=== PATIENT | female | born 1945 | race Caucasian/White ===

== ENCOUNTER 2020-02-02 17:45 | Inpatient (IN) | payer MEDICARE, MEDICAID ==
[~2020-02-02] VITALS: Ht 154.9 cm; Wt 90.3 kg
--- NOTE | 2020-02-02 17:51 | NUR ---
SHERIE FROM [facility] C/O ALTERED MENTAL STATUS PER EMS LOW BLOOD SUGAR; PT TO BED 6, PT AAOX1, PT ANSWER QUESTIONS APPROPRIETLY, -SOB, -PAIN/DISCOMFRT, -CP, VSS, NAD NOTED. PENDING ER PROVIDER CESAR
--- NOTE | 2020-02-02 17:56 | NUR ---
BG=90--DR SOTO AWARE
[2020-02-02] MEDS ORDERED: CARB1TAB24 PO (17:59)
[2020-02-02] MEDS ORDERED: GLIP5TAB13 PO (17:59)
[2020-02-02] MEDS ORDERED: CHOL500052 PO (17:59)
[2020-02-02] MEDS ORDERED: METF-440 PO (17:59)
[2020-02-02] MEDS ORDERED: AMLO5TAB9 PO (17:59)
[2020-02-02] MEDS ORDERED: LORA-259 PO (17:59)
[2020-02-02] MEDS ORDERED: DIVA-78 PO (17:59)
--- NOTE | 2020-02-02 18:00 | NUR ---
ordered meal tray, pt asleep at this time, will offer once pt more awake
[2020-02-02 18:30] LABS: BASOPHILS # (AUTO) 0.1 /CMM (0.0-0.2); EOSINOPHILS % (AUTO) 0.8 % (0.0-6.0); HEMATOCRIT 46 % (33-45); HEMOGLOBIN 14.8 g/dL (11.5-14.8); LYMPHOCYTES # (AUTO) 2.3 /CMM (0.8-4.8); LYMPHOCYTES % (AUTO) 20.9 % (20.0-44.0); MEAN CORPUSCULAR HGB CONC 32 g/dl (31.0-36.0); MEAN CORPUSCULAR VOLUME 99 fL (82-100); MONOCYTES % (AUTO) 8.8 % (2.0-12.0); NEUTROPHILS # (AUTO) 7.6 /CMM (1.8-8.9); NEUTROPHILS % (AUTO) 68.5 % (43.0-81.0); PLATELET COUNT (AUTO) 324 /CMM (150-450); RED BLOOD CELL COUNT(AUTO) 4.66 MIL/uL (4.0-5.2)
[2020-02-02] MEDS ORDERED: ONDANSETRON HCL/PF 4 MG/2 ML VIAL ONE (18:30)
[2020-02-02] MEDS ORDERED: IV NS 0.9% 1,000 ML BAG IV ONE (18:30)
[2020-02-02] MEDS ORDERED: ONDANSETRON HCL/PF 4 MG/2 ML VIAL IVP ONE (18:30)
[2020-02-02 18:42] LABS: CARBON DIOXIDE 29 mmol/L (21-32); CHLORIDE 103 mmol/L (98-107); CREATININE 0.9 mg/dL (0.6-1.3); GLUCOSE 95 mg/dL (74-106); POTASSIUM 4.6 mmol/L (3.5-5.1); SODIUM SERUM 140 mmol/L (136-145); UREA NITROGEN, BLOOD 18 mg/dL (7-18)
[2020-02-02 18:49] LABS: ALANINE AMINOTRANSFERASE 7 U/L (12-78); ALBUMIN 3.9 g/dL (3.4-5.0); ALKALINE PHOSPHATASE 102 U/L (46-116); ASPARTATE AMINOTRANSFERASE 17 U/L (15-37); BILIRUBIN,DIRECT 0.1 mg/dL (0.0-0.2); BILIRUBIN,TOTAL 0.4 mg/dL (0.2-1.0); LIPASE 121 U/L (73-393); TOTAL PROTEIN, SERUM 7.6 g/dL (6.4-8.2)
--- NOTE | 2020-02-02 20:58 | NUR ---
REPORT GIVEN TO KELLEY GRAHAM FOR ANDREY PT WILL BE TRANSPORTED TO 2ND FLOOR
[2020-02-02 21:30] VITALS: BP 137/98
[2020-02-02] MEDS ORDERED: DEXTROSE 50%-WATER 50 ML DISP.SYRIN IV PRN (22:00)
[2020-02-02] MEDS ORDERED: *INSULIN REGULAR(HUMULIN R)HUM 100 UNIT/ML VIAL SQ PRN (22:00)
[2020-02-02] MEDS ORDERED: ONDANSETRON HCL/PF 4 MG/2 ML VIAL IVP PRN (22:00)
[2020-02-02] MEDS ORDERED: INSULIN REGULAR, HUMAN 100 UNIT/ML 3 ML VIAL SQ PRN (22:00)
[2020-02-02] MEDS ORDERED: MAG HYDROX/AL HYDROX/SIMETH 30 ML UDC PO PRN (22:00)
[2020-02-02] MEDS ORDERED: MAGNESIUM HYDROXIDE 30 ML UDC PO PRN (22:00)
[2020-02-02] MEDS ORDERED: Z GUARD REMEDY 2 OZ OINT TP PRN (22:00)
[2020-02-02] MEDS ORDERED: ACETAMINOPHEN 325 MG TABLET PO PRN (22:00)
--- NOTE | 2020-02-02 22:00 | NUR ---
MS notes Receive pt from E.R services at 2116 pt a/o x 1-2, respirations even and unlabored. admit to MS unit. head to toe assessment is done. no s/s of distress, kept clean, dry and comfortable. safety measures in place will cont to monitor.
[2020-02-02] MEDS: IV NS 0.9% 1,000 ML IV PRN (22:11)
[2020-02-02] MEDS: BLOOD SUGAR DIAGNOSTIC 1 EACH STRIP VI SCH (22:12)
--- NOTE | 2020-02-02 23:00 | NUR ---
Pt's blood sugar checked at 97 mg/dl
--- NOTE | 2020-02-02 23:30 | NUR ---
S/B DR. PARNELL. ORDERED DNR/DNI. POLST PROVIDED IN THE CHART ORDER NOTED AND CARRIED OUT
[2020-02-03] MEDS: HYDROCODONE/APAP 5/325MG 1 EACH TABLET PO PRN ×2 (02:29→15:28)
--- NOTE | 2020-02-03 06:14 | NUR ---
MS RN PT ASLEEP AND EASILY AWAKEN, SLEPT WELL. NO S/S OF DISTRESS, NEEDS ATTENDED AND ANTICIPATED, KEPT CLEAN, DRY AND COMFORTABLE. AM CARE RENDERED, ASSISTED REPOSITION Q2HR. SAFETY MEASURES AT ALL TIMES. WILL ENDORSE NEXT SHIFT POC.
[2020-02-03] MEDS: BLOOD SUGAR DIAGNOSTIC 1 EACH STRIP VI SCH ×4 (06:42→21:56)
--- NOTE | 2020-02-03 07:06 | NUR ---
SENT FLU SWAB SPECIMEN RECEIVED BY LAB
[2020-02-03 07:10] LABS: BASOPHILS % (AUTO) 0.5 % (0.0-2.0); EOSINOPHILS % (AUTO) 1.7 % (0.0-6.0); HEMATOCRIT 40 % (33-45); HEMOGLOBIN 12.9 g/dL (11.5-14.8); LYMPHOCYTES # (AUTO) 2.4 /CMM (0.8-4.8); LYMPHOCYTES % (AUTO) 27.5 % (20.0-44.0); MEAN CORPUSCULAR HGB CONC 32 g/dl (31.0-36.0); MEAN CORPUSCULAR VOLUME 97 fL (82-100); MONOCYTES # (AUTO) 0.9 /CMM (0.1-1.30); MONOCYTES % (AUTO) 10.4 % (2.0-12.0); NEUTROPHILS # (AUTO) 5.3 /CMM (1.8-8.9); NEUTROPHILS % (AUTO) 59.9 % (43.0-81.0); PLATELET COUNT (AUTO) 284 /CMM (150-450); WHITE BLOOD COUNT (AUTO) 8.8 K/uL (4.3-11.0)
--- NOTE | 2020-02-03 07:10 | NUR ---
RN OPENING NOTES RECEIVED PATIENT IN BED RESTING. A/OX1-2, CONFUSED, REORIENTED PATIENT. NOT IN NAY FORM OF DISTRESS, NO SOB. DENIED PAIN OR DISCOMFORT AT THE MOMENT. IV ACCESS INTACT AND PATENT. KEPT PATIENT SAFE AND COMFORTABLE. BED IN LOW/LOCKED POSITION. SIDERAILS UPX2, CALL LIGHT IN REACH. BED ALARM ALARM ON. WILL MONITOR ACCORDINGLY.
[2020-02-03 07:28] LABS: CALCIUM, SERUM 8.8 mg/dL (8.5-10.1); MAGNESIUM 1.9 mg/dL (1.8-2.4); PHOSPHORUS 4.6 mg/dL (2.5-4.9); POTASSIUM 4.8 mmol/L (3.5-5.1)
[2020-02-03 08:01] VITALS: BP 122/92
[2020-02-03] MEDS: AMLODIPINE BESYLATE 5 MG TABLET PO SCH (08:07)
[2020-02-03] MEDS: METFORMIN 500 MG TABLET PO SCH ×2 (08:07→17:08)
[2020-02-03] MEDS: DIVALPROEX SODIUM 500 MG TABLET.DR PO SCH ×2 (08:07→17:08)
[2020-02-03] MEDS: LORAZEPAM 1 MG TABLET PO SCH ×3 (08:07→17:08)
[2020-02-03] MEDS: CARBIDOPA/LEVODOPA 25/250 MG 1 UDTAB PO SCH ×4 (08:08→21:55)
--- NOTE | 2020-02-03 09:22 | NUR ---
WOUND CARE CONSULT: PT PRESENTS WITH LEFT 3RD TOE DRY WOUND AND BREASTFOLD RASH, PRESENT ON ADMISSION. RECOMMENDATIONS MADE FOR SKIN PROTECTION AND SKIN CARE. DISCUSSED WITH NURSING STAFF. PT CONTINENT AT THIS TIME. RECOMMEND DPM CONSULT. DR PARK NOTIFIED OF CONSULT REQUEST. CURRENT ANTONIO SCORE IS 16. Addendum: 02/03/20 at 0923 by ANJUM HAILE WNDNU Amended: Links added.
[2020-02-03] MEDS: CLOTRIMAZOLE 1% 15 GM TUBE TP SCH ×2 (10:55→17:17)
[2020-02-03] MEDS: CADEXOMER IODINE 40 GM TUBE TP SCH (13:28)
[2020-02-03 16:00] VITALS: BP_SYST 148; BP_DIAS 81; BP_DIAS 88
--- NOTE | 2020-02-03 19:20 | NUR ---
rn closing notes patient in stable condition. all needs attended and provided. all due medications given as ordered. bed in low/locked position, call light in reach, siderails up, bed alarm on. endorsed accordingly.
--- NOTE | 2020-02-03 19:30 | NUR ---
MS RN OPENING NOTE RECEIVED PATIENT IN BED. A/OX 1 - 2, PER REPORT PERIODS OF CONFUSION. TOLERATING ROOM AIR. RESPIRATION ARE EVEN AND UNLABORED. NO S/S SOB NOTED. NO S/S PAIN AT THIS TIME. IN NO APPARENT DISTRESS. IV ACCESS IN RFA#20 RUNNING NS@75ML/HR. BED IS LOW AND LOCKED, HOB ELEVATED IN HIGH FOWLERS, SIDE RIALS UP X2, EXTREMITIES OFFLOADED. CALL LIGHT WITHIN REACH. WILL CONTINUE TO MONITOR.
[2020-02-03 20:00] VITALS: BP 136/75
[2020-02-03 20:34] VITALS: BP 136/75
[2020-02-04] MEDS: HYDROCODONE/APAP 5/325MG 1 EACH TABLET PO PRN (00:44)
--- NOTE | 2020-02-04 00:44 | NUR ---
MS RN NOTE ADMINISTERED PRN NORCO 5/325 FOR PAIN 10 , GENERALIZED IN WHOLE BODY. WILL CONTINUE TO MONITOR.
[2020-02-04] MEDS: IV NS 0.9% 1,000 ML IV PRN (04:55)
[2020-02-04] MEDS: BLOOD SUGAR DIAGNOSTIC 1 EACH STRIP VI SCH ×3 (06:10→17:11)
--- NOTE | 2020-02-04 06:20 | NUR ---
MS RN CLOSING NOTE PATIENT IN BED. A/OX 1 - 2, EPISODES OF CONFUSION. TOLERATING ROOM AIR. RESPIRATION ARE EVEN AND UNLABORED. NO SOB NOTED. MANAGED PAIN WITH NORCO 5/325. NO DISTRESS NOTED. IV ACCESS MAINTAINED IN RFA#20 CURRENTLY PATENT AND SALINE LOCKED. BED IS LOW AND LOCKED, HOB ELEVATED IN SEMI FOWLERS FOWLERS, SIDE RIALS UP X2, EXTREMITIES OFFLOADED. CALL LIGHT WITHIN REACH. WILL ENDORSE TO NEXT SHIFT.
--- NOTE | 2020-02-04 07:25 | NUR ---
MS RN NOTES PATIENT IN BED ALERT ORIENTED X 1-2 .NO ACUTE DISTRESS NOTED, BREATHING UNLABORED. IV ACCESS PATENT AND INTACT, NO REDNESS OR SWELLING NOTED. SAFETY MEASURES IN PLACE. CALL LIGHT WITHIN REACH. WILL CONTINUE TO MONITOR ACCORDINGLY.
[2020-02-04 08:00] VITALS: BP 156/66
[2020-02-04] MEDS: LORAZEPAM 1 MG TABLET PO SCH ×3 (08:44→16:02)
[2020-02-04] MEDS: DIVALPROEX SODIUM 500 MG TABLET.DR PO SCH ×2 (08:44→16:02)
[2020-02-04] MEDS: AMLODIPINE BESYLATE 5 MG TABLET PO SCH (08:45)
[2020-02-04] MEDS: CARBIDOPA/LEVODOPA 25/250 MG 1 UDTAB PO SCH ×3 (08:45→17:07)
[2020-02-04] MEDS: METFORMIN 500 MG TABLET PO SCH ×2 (08:45→17:07)
[2020-02-04] MEDS: CADEXOMER IODINE 40 GM TUBE TP SCH (08:45)
[2020-02-04] MEDS: CLOTRIMAZOLE 1% 15 GM TUBE TP SCH ×2 (08:46→16:02)
--- NOTE | 2020-02-04 14:23 | NUR ---
MS RN NOTES PATIENT SEEN AND EVALUATED BY DR FABIOLA GUY WITH NEW ORDERS MADE, NOTED AND CARRIED OUT.
[2020-02-04] MEDS ORDERED: CLOT15CR35 TP (14:25)
[2020-02-04] MEDS ORDERED: CADE40GE2 TP (14:25)
[2020-02-04 16:00] VITALS: BP 153/81
--- NOTE | 2020-02-04 19:00 | NUR ---
MS RN NOTES PATIENT IN BED ALERT ORIENTED X 1-2 .NO ACUTE DISTRESS NOTED, BREATHING UNLABORED. IV ACCESS PATENT AND INTACT, NO REDNESS OR SWELLING NOTED. NEEDS ATTENDED AND ANTICIPATED. KEPT CLEAN DRY AND COMFORTABLE. SAFETY MEASURES IN PLACE. CALL LIGHT WITHIN REACH. WILL ENDORSE TO NIGHT NURSE FOR CONTINUITY OF CARE .
--- NOTE | 2020-02-04 19:37 | NUR ---
MS RN OPENING NOTES: RECEIVED PATIENT AT 1910 IN BED, AWAKE A/O X1, SCREAMING OCCATIONALLY. NO SOB NOTED. NO COMPLAIN OF PAIN. BED IN LOWEST AND LOCKED POSITION. BED ALARM ON. CALL LIGHT WITHIN REACH. FOR D/C BACK TO THE ASSISTED LIVING. D/C PACKET ALREADY PREPARED AND PRINTED BY THE PREVIOUS RN. AND ASSISTED LIVING WAS ALREADY NOTIFIED BY DAYSHIFT RN TO NOTIFY THE PATIENT IS GOING BACK TONIGHT, AND PATIENT IS BEING ACCEPTED.
--- NOTE | 2020-02-04 19:55 | NUR ---
PATIENT IS INCONTINENT, ANA MARIA-CARE DONE. DIAPER CHANGED. Z-GUARD CREAM APPLIED ON THE SACROCOCCYX AREA,WITH BLANCHABLE REDNESS NOTED. PATIENT ABLE TO TURN HERSELF TO SIDES.
--- NOTE | 2020-02-04 20:24 | NUR ---
IV REMOVED TIP IS INTACT. TYLENOL 650MG PO GIVEN FOR CRAMPS.
--- NOTE | 2020-02-04 20:31 | NUR ---
REPORTS GIVEN TO THE AMBULANCE PERSONNEL.
== END 2020-02-04 21:00 | DRG 640 ==
LOC: ER 17:50 → MEDSG2 21:14
PROVIDERS: ADMIT Internal Medicine; ATTEND Nurse Practitioner Acute Care
DX: E86.0 Dehydration (principal); G93.41 Metabolic encephalopathy; G20 Parkinson's disease; F41.9 Anxiety disorder, unspecified; E11.42 Type 2 diabetes mellitus with diabetic polyneuropathy; E11.621 Type 2 diabetes mellitus with foot ulcer; F31.9 Bipolar disorder, unspecified; I10 Essential (primary) hypertension; R62.7 Adult failure to thrive; Z79.84 Long term (current) use of oral hypoglycemic drugs; R53.1 Weakness; L97.529 Non-pressure chronic ulcer of other part of left foot with unspecified severity; J20.9 Acute bronchitis, unspecified; R21 Rash and other nonspecific skin eruption; Z95.810 Presence of automatic (implantable) cardiac defibrillator; R40.2413 Glasgow coma scale score 13-15, at hospital admission
CPT/HCPCS: 36415; 71045-TC; 80048-TC; 80076-TC; 82962-TC; 83690-TC; 83735-TC; 84100-TC; 84484-TC; 85025-TC; 87081-TC; 97112-TC; 97530-TC; G0378; J1815; J2405; J7030